=== PATIENT | female | born 1950 | race Caucasian/White ===

== ENCOUNTER → 2018-09-24 | Outpatient (CLI) | payer OTHER, BC ==
[~2018-09-24] VITALS: Ht 170.2 cm; Wt 84.4 kg
[~2018-09-24] MED LIST: ALEVE220 MG PO; ATORVASTATIN CA40 MG PO; OMEPRAZOLE 20 M20 M1 PO; TRAMADOL 50 MG50 MG PO; VITAMIN D32000 UNIT PO
[2018-09-24 08:24] VITALS: BP 144/69
--- NOTE | 2018-09-24 08:37 | NUR ---
Pain Clinic Assessment: 1. History of Osteoarthritis: History of Rheumatoid Arthritis: 2. Height: 5 ft. 7 in. 170.2 cm. Weight: 186.0 lb. oz. 84.369 kg. Patient's BMI: 29.1 3. Vital Signs: BP: 144/69 Pulse: 77 Resp: 20 Temp: 02 Sat: 97 ECG Mon: 4. Pain Intensity: 8 5. Fall Risk: Dizziness: N Needs help standing or walking: N Fallen in the last 3 months: N Fall risk comments: 6. Patient on Blood Thinner: None 7. History of Hypertension: N 8. Opioid Therapy greater than 6 weeks: Y Opiate Contract Signed: 9. Risk Assessment Tool Provided: LOW 10. Functional Assessment Tool: 11. Recreational Drug Use: Never Drug Type: Tobacco Use: Never Smoker Tobacco Type: Amount or Packs/day: How Many Years: Alcohol Use: No Frequency: Quant:
--- NOTE | 2018-10-03 16:10 | HPC ---
[facility] [place] [address] [place] [address] PAIN MANAGEMENT CONSULTATION Name: MARVINKANDICE Stafford Room #: REG JIMMYBernabe Willoughby#: [id number] Admission: 09/24/18 ������������������ Attend Phys: Mindy Mora MD Discharge: ������������������ Date of : 46 Report #: [id number] THIS REPORT FOR: //name// CC: Mindy Edwards DATE OF SERVICE: 09/24/2018 CHIEF COMPLAINT: Severe scoliosis and back pain. HISTORY OF PRESENT ILLNESS: The patient is a 68-year-old female who has been referred to the pain clinic for evaluation. The patient has been having pain and discomfort involving her left side. Has had some discomfort down into her left leg. Notes that her pain has been exacerbated by sitting. Notes that lying in certain positions can exacerbate her pain. She describes it as a continuous discomfort which she rates as an 8/10. She has noticed that this pain has been ongoing for a number of months. She has had epidural steroid injections in the past and gleaned that they were beneficial. At this point, her pain has gotten to the stage where she would consider additional treatment. Denies any bowel or bladder dysfunction, which are new. ALLERGIES: No known drug allergies. CURRENT MEDICATIONS: Lipitor 40 mg daily, vitamin D 2000 units, Prilosec 20 mg, tramadol 50 mg 1 tablet by mouth 2 times daily, Naprosyn 220 mg 2 tablets daily. The patient has had a Medrol Dosepak and has taken it as directed. PAST MEDICAL HISTORY: Anemia, melanoma, scoliosis, and sigmoid diverticulitis. PAST SURGICAL HISTORY: Brain meningioma excision T2/T3 in 2002, reductive mammoplasty, bilateral skin cancer excision, left forearm melanoma in 2015, total abdominal hysterectomy in 1983, and varicose vein surgery in 05/2018. REVIEW OF SYSTEMS: Generally good health, fever, night sweats, shortness of breath with walking, and varicose veins removed. LABORATORY DATA: No new laboratory values are available at the time of our interview. PAIN CLINIC ASSESSMENT AND PQRS: 1. The patient is not being treated for rheumatoid arthritis or osteoarthritis. 2. Height 5 feet 7 inches, weight 186 pounds, BMI is 29.1. 3. Vital Signs: Blood pressure 144/69, pulse 77, respiratory rate 20, room air saturation 97%. 4. Pain intensity 8/10. 5. Fall history: The patient has not fallen in the last 3 months. [facility] [address] [place] [address] PAIN MANAGEMENT CONSULTATION Name: KANDICE WONG Room #: REG CLBernabe Willoughby#: [id number] Admission: 09/24/18 ������������������ Attend Phys: Mindy Mora MD Discharge: ������������������ Date of : 46 Report #: [id number] 6. Blood thinner. The patient is not on a blood thinning medication. 7. Hypertension. The patient is not being treated for hypertension. 8. Opiates greater than 6 weeks. The patient is receiving medications through her primary physician. 9. Risk assessment tool, low for opioid use. 10. Functional assessment 49/70. 11. Recreational drug use. The patient denies. 12. Tobacco: The patient never smoked. 13. Alcohol: The patient denies use of alcoholic beverages. PHYSICAL EXAMINATION: GENERAL: The patient is a well-developed, well-nourished white female. Appears her stated age. She is alert and oriented x 3. Affect is appropriate. Speech is fluent. HEENT: Normocephalic, atraumatic. Extraocular eye muscles intact. The patient has surgical incision at T2/T3. States meningioma had been removed at this level. HEART: Regular rate. LUNGS: Clear to auscultation. ABDOMEN: Nontender. EXTREMITIES: Upper extremity muscle strength is judged to be 4/5, + 2 biceps response, left and right. The patient without significant kyphosis, has scoliosis in the lower extremity in the lower spine area. The patient has pain and discomfort, which is radiating down into her legs. Has plantar fasciitis history. Deep tendon reflexes are +3 at the knees bilaterally and +2 at the ankles. Forward bending to 45 degrees causes some increased discomfort in the low back area. Lumbar extension exacerbated the pain in the low back area. Right lateral rotation was more difficult. A left and right lateral leaning causes some increased pain more problematic on the right side. IMPRESSION: 1. Lumbar radiculopathy, L4-L5 dermatomal distribution. 2. Anemia. 3. Melanoma. 4. Scoliosis. 5. Sigmoid diverticulitis. RECOMMENDATIONS: We discussed treatment options with the patient. Risks and benefits of an epidural steroid injection were discussed. The patient will return to the pain clinic at which time she will then undergo treatment. Risks and benefits of an epidural steroid injection were discussed. The patient's condition was explained using visual items. A lumbar spine was used to indicate the area of probable pathology. The patient states that she understands and will return for treatment in the near future. [facility] [address] [place] [address] PAIN MANAGEMENT CONSULTATION Name: KANDICE WONG Room #: REG ORACIO Willoughby#: [id number] Admission: 09/24/18 ������������������ Attend Phys: Mindy Mora MD Discharge: ������������������ Date of : 46 Report #: [id number] We would like to thank you for letting us participate in her care. We hope she continues to improve. ��������������������������������������������� <ELECTRONICALLY SIGNED> ���������������������������������������� By: Mindy Mora MD ��������������������������������������������� 10/03/18 1610 1629 0012 Mindy Mora MD /nt
== END ==
LOC: PAIN 06:45
DX: M41.86 Other forms of scoliosis, lumbar region (principal); M54.16 Radiculopathy, lumbar region; K57.32 Diverticulitis of large intestine without perforation or abscess without bleeding; Z79.899 Other long term (current) drug therapy

== ENCOUNTER → 2018-10-01 | Outpatient (CLI) | payer OTHER, BC ==
[~2018-10-01] VITALS: Ht 170.2 cm; Wt 85.5 kg
[2018-10-01 08:27] VITALS: BP 135/61
--- NOTE | 2018-10-01 08:44 | NUR ---
Pain Clinic Assessment: 1. History of Osteoarthritis: History of Rheumatoid Arthritis: 2. Height: 5 ft. 7 in. 170.2 cm. Weight: 188.6 lb. oz. 85.548 kg. Patient's BMI: 29.5 3. Vital Signs: BP: 135/61 Pulse: 83 Resp: 16 Temp: 02 Sat: 97 ECG Mon: 4. Pain Intensity: 3 5. Fall Risk: Dizziness: N Needs help standing or walking: N Fallen in the last 3 months: N Fall risk comments: 6. Patient on Blood Thinner: None 7. History of Hypertension: N 8. Opioid Therapy greater than 6 weeks: Y Opiate Contract Signed: 9. Risk Assessment Tool Provided: LOW 10. Functional Assessment Tool: 49 11. Recreational Drug Use: Never Drug Type: Tobacco Use: Never Smoker Tobacco Type: Amount or Packs/day: How Many Years: Alcohol Use: No Frequency: Quant:
--- NOTE | 2018-10-03 16:10 | HPC ---
[facility] [place] [address] PAIN MANAGEMENT CONSULTATION Name: KANDICE WONG Room #: REG [facility] Jaelyn.#: [id number] Admission: 10/01/18 ������������������ Attend Phys: Mindy Mora MD Discharge: ������������������ Date of : 46 Report #: [id number] THIS REPORT FOR: //name// CC: Mindy Edwards DATE OF SERVICE: 10/01/2018 CHIEF COMPLAINT: Severe scoliosis with low back pain. HISTORY: The patient is a 68-year-old female, who has been seen in the pain clinic because of lumbar radicular pain. She has reported back pain since 07/2018. It involves the lower portion of her back and radiates down into the left side of her bottom and into her left leg. She notes he pain is exacerbated by sitting, lying down. She described it as continuous, aching, and rates it as an 8/10. She has tried tramadol as well as Aleve without significant relief. She also has a history of plantar fasciitis. She has had epidural steroid injections in the past. She has returned to the pain clinic for an epidural steroid injection today. CURRENT MEDICATIONS: Lipitor 40 mg daily, vitamin D 2000 units, Prilosec 20 mg 1 capsule, and Ultram 50 mg 2 by mouth 2 times daily. ALLERGIES: No known drug allergies. PAIN CLINIC ASSESSMENT AND PQRS: 1. Osteoarthritis. The patient is not being treated for osteoarthritis. She is not being treated for rheumatoid arthritis. 2. Pain intensity is 3/10. 3. Fall history: The patient has not fallen in the last 3 months. 4. Blood thinner. The patient is not on a blood thinning medication. 5. Hypertension. The patient is not being treated for hypertension. 6. Opioid therapy greater than 6 weeks. The patient receives medication from her primary physician. 7. Risk assessment tool, low for opioid use. 8. Functional assessment tool, 49/70. 9. Recreational drug use. The patient denies use of recreational drugs. 10. Tobacco: The patient has never smoked. 11. Alcohol: The patient denies use of alcoholic beverages. PHYSICAL EXAMINATION: GENERAL: The patient is a well-developed, well-nourished white female. She appears her stated age. She is alert and oriented x 3. Affect is appropriate. Speech is fluent. Height is 5 feet 7 inches, weight is 188 pounds, and BMI is 29.5. VITAL SIGNS: Blood pressure is 135/61, pulse is 83, respiratory rate is 16, and [facility] [address] [place] [address] PAIN MANAGEMENT CONSULTATION Name: KANDICE WONG Room #: REG [facility]#: [id number] Admission: 10/01/18 ������������������ Attend Phys: Mindy Mora MD Discharge: ������������������ Date of : 46 Report #: [id number] HEENT: Normocephalic, atraumatic. Extraocular eye muscles intact. Sclerae nonicteric. Mucous membranes are moist. NECK: Without adenopathy or JVD. EXTREMITIES: Upper extremity muscle strength is judged to be 5-/5 for the major muscle groups in the upper extremity. The patient is without significant lordosis. The patient has a history of scoliosis. Lower extremity muscle strength is judged to be 5-/5 for the major muscle groups. Deep tendon reflexes are +3 at the knees and +2 at the ankles. Upper extremity Deep tendon reflexes are +2 at the biceps bilaterally. IMPRESSION: Lumbar radiculopathy in the L4-L5 dermatomal distribution. RECOMMENDATIONS: We have discussed treatment options with the patient. Risks and benefits of an epidural steroid injection were discussed. They include but are not limited to infection, worsening of pain, no improvement in pain, trauma, spinal headache, and the patient elects to proceed. PROCEDURE NOTE: The patient was assisted in going to the examination room. Questions were sought and answered. She was placed in the prone position. Fluoroscopy was used to identify the L4-L5 interspace. A pillow was placed under the patient's abdomen to improve positioning. Her back was sterilely prepped with a Betadine solution. A 25-gauge needle was then advanced into this area. Aspiration was negative. At the L4-L5 area, 0.25% bupivacaine was infiltrated. A 17-gauge Tuohy with loss of resistance technique was used to gain access to the epidural space. There was no CSF, heme, or paresthesia. A total of 80 mg Depo-Medrol, 40 mg of triamcinolone, and 2 mL of 0.25% bupivacaine was injected. The patient tolerated the procedure well. There were no complications. Her pain decreased to 0 at the time of discharge. She will call us if she has any concerns. A total of 15 seconds fluoroscopy time was used. ��������������������������������������������� <ELECTRONICALLY SIGNED> ���������������������������������������� By: Mindy Mora MD ��������������������������������������������� 10/03/18 1610 1616 [id number] Mindy Mora MD /REAGAN
== END | disposition home or self-care (01) ==
LOC: PAIN 06:42
DX: M54.16 Radiculopathy, lumbar region (principal); G89.29 Other chronic pain; Z79.899 Other long term (current) drug therapy; Z98.890 Other specified postprocedural states

== ENCOUNTER → 2018-11-26 | Outpatient (CLI) | payer OTHER, BC ==
[~2018-11-26] VITALS: Ht 170.2 cm; Wt 87.2 kg
[~2018-11-26] MED LIST changes: +MOBIC15 MG PO
[2018-11-26 09:05] VITALS: BP 130/68
--- NOTE | 2018-11-26 09:31 | NUR ---
Pain Clinic Assessment: 1. History of Osteoarthritis: History of Rheumatoid Arthritis: 2. Height: 5 ft. 7 in. 170.2 cm. Weight: 192.2 lb. oz. 87.181 kg. Patient's BMI: 30.1 3. Vital Signs: BP: 130/68 Pulse: 96 Resp: 18 Temp: 02 Sat: 98 ECG Mon: 4. Pain Intensity: 5 5. Fall Risk: Dizziness: Y Needs help standing or walking: N Fallen in the last 3 months: N Fall risk comments: 6. Patient on Blood Thinner: None 7. History of Hypertension: N 8. Opioid Therapy greater than 6 weeks: Y Opiate Contract Signed: 9. Risk Assessment Tool Provided: LOW 10. Functional Assessment Tool: 49/ 11. Recreational Drug Use: Never Drug Type: Tobacco Use: Never Smoker Tobacco Type: Amount or Packs/day: How Many Years: Alcohol Use: No Frequency: Quant:
== END | disposition home or self-care (01) ==
LOC: PAIN 06:50
DX: M54.16 Radiculopathy, lumbar region (principal); M41.86 Other forms of scoliosis, lumbar region; M19.90 Unspecified osteoarthritis, unspecified site; I10 Essential (primary) hypertension; Z79.899 Other long term (current) drug therapy; Z98.890 Other specified postprocedural states

== ENCOUNTER → 2020-09-30 | Outpatient (CLI) | payer OTHER, BC ==
[~2020-09-30] VITALS: Ht 167.6 cm; Wt 91.4 kg
[~2020-09-30] MED LIST changes: +HYDROCODON-ACE1 EAC7 PO; +IRON325 PO
[2020-09-30 13:00] VITALS: BP 144/79
--- NOTE | 2020-09-30 13:25 | NUR ---
Pain Clinic Assessment: 1. History of Osteoarthritis: Left Upper Extremity Right Upper Extremity History of Rheumatoid Arthritis: 2. Height: 5 ft. 6 in. 167.6 cm. Weight: 201.6 lb. oz. 91.445 kg. Patient's BMI: 32.6 3. Vital Signs: BP: 144/79 Pulse: 88 Resp: 16 Temp: 02 Sat: 96 ECG Mon: 4. Pain Intensity: 9/W ACTIVITY 5. Fall Risk: Dizziness: N Needs help standing or walking: N Fallen in the last 3 months: N Fall risk comments: 6. Patient on Blood Thinner: None 7. History of Hypertension: N 8. Opioid Therapy greater than 6 weeks: Y Opiate Contract Signed: 9. Risk Assessment Tool Provided: LOW 10. Functional Assessment Tool: 49/70 11. Recreational Drug Use: Never Drug Type: Tobacco Use: Never Smoker Tobacco Type: Amount or Packs/day: How Many Years: Alcohol Use: No Frequency: Quant:
== END ==
LOC: PAIN 07:25
PROVIDERS: ATTEND Anesthesiology Pain Medicine
DX: M54.16 Radiculopathy, lumbar region (principal); M85.88 Other specified disorders of bone density and structure, other site; E78.00 Pure hypercholesterolemia, unspecified; M41.9 Scoliosis, unspecified; K57.32 Diverticulitis of large intestine without perforation or abscess without bleeding; R53.83 Other fatigue; Z79.899 Other long term (current) drug therapy; Z79.891 Long term (current) use of opiate analgesic

== ENCOUNTER → 2020-10-19 | Outpatient (CLI) | payer OTHER, BC ==
[~2020-10-19] VITALS: Ht 165.1 cm; Wt 87.5 kg
[2020-10-19 08:23] VITALS: BP 148/84
--- NOTE | 2020-10-19 08:33 | NUR ---
Pain Clinic Assessment: 1. History of Osteoarthritis: Left Upper Extremity Right Upper Extremity History of Rheumatoid Arthritis: Not Applicable 2. Height: 5 ft. 5 in. 165.1 cm. Weight: 193.0 lb. oz. 87.544 kg. Patient's BMI: 32.1 3. Vital Signs: BP: 148/84 Pulse: 81 Resp: 16 Temp: 02 Sat: 94 ECG Mon: 4. Pain Intensity: 9 5. Fall Risk: Dizziness: N Needs help standing or walking: N Fallen in the last 3 months: N Fall risk comments: 6. Patient on Blood Thinner: None 7. History of Hypertension: N 8. Opioid Therapy greater than 6 weeks: Y Opiate Contract Signed: 9. Risk Assessment Tool Provided: LOW-1 10. Functional Assessment Tool: 11. Recreational Drug Use: Never Drug Type: Tobacco Use: Never Smoker Tobacco Type: Amount or Packs/day: How Many Years: Alcohol Use: No Frequency: Quant:
== END | disposition home or self-care (01) ==
LOC: PAIN 06:57
PROVIDERS: ATTEND Anesthesiology Pain Medicine
DX: M54.16 Radiculopathy, lumbar region (principal); G89.29 Other chronic pain; M85.80 Other specified disorders of bone density and structure, unspecified site; D64.9 Anemia, unspecified; M19.90 Unspecified osteoarthritis, unspecified site; Z98.890 Other specified postprocedural states; Z79.899 Other long term (current) drug therapy; Z85.820 Personal history of malignant melanoma of skin; Z90.710 Acquired absence of both cervix and uterus

== ENCOUNTER → 2021-03-22 | Outpatient (CLI) | payer OTHER, BC ==
[~2021-03-22] VITALS: Ht 165.1 cm; Wt 76.4 kg
[~2021-03-22] MED LIST changes: +ACETAMINOPHEN500 MG PO
[2021-03-22 09:08] VITALS: BP 129/76
--- NOTE | 2021-03-22 09:29 | NUR ---
Pain Clinic Assessment: 1. History of Osteoarthritis: Left Upper Extremity Right Upper Extremity History of Rheumatoid Arthritis: Not Applicable 2. Height: 5 ft. 5 in. 165.1 cm. Weight: 168.4 lb. oz. 76.386 kg. Patient's BMI: 28.0 3. Vital Signs: BP: 129/76 Pulse: 85 Resp: 16 Temp: 02 Sat: 97 ECG Mon: 4. Pain Intensity: 9 5. Fall Risk: Dizziness: N Needs help standing or walking: N Fallen in the last 3 months: N Fall risk comments: 6. Patient on Blood Thinner: None 7. History of Hypertension: N 8. Opioid Therapy greater than 6 weeks: Y Opiate Contract Signed: 9. Risk Assessment Tool Provided: LOW-1 10. Functional Assessment Tool: 11. Recreational Drug Use: Never Drug Type: Tobacco Use: Never Smoker Tobacco Type: Amount or Packs/day: How Many Years: Alcohol Use: No Frequency: Quant:
== END | disposition home or self-care (01) ==
LOC: PAIN 08:45
PROVIDERS: ATTEND Anesthesiology Pain Medicine
DX: M54.16 Radiculopathy, lumbar region (principal); G89.29 Other chronic pain; Z79.899 Other long term (current) drug therapy; Z98.890 Other specified postprocedural states